=== PATIENT | male | born 1990 | race Caucasian/White ===

== ENCOUNTER 2022-09-03 17:23 | Emergency (ER) | payer MEDICAID ==
[~2022-09-03] VITALS: Ht 172.7 cm; Wt 98.0 kg
[2022-09-03] MEDS ORDERED: TETANUS, DIPHTHERIA, PERTUSSIS VAC/PF 0.5ML (>10YR OLD) IM ONE (21:30)
[2022-09-03] MEDS ORDERED: AMOX1TAB16 MT (21:42)
[2022-09-03 21:59] VITALS: BP 132/76
== END 2022-09-03 22:03 | disposition home or self-care (01) ==
LOC: ER 17:23
DX: S61.552A Open bite of left wrist, initial encounter (principal); E11.9 Type 2 diabetes mellitus without complications; W54.0XXA Bitten by dog, initial encounter; Y93.89 Activity, other specified; Y92.89 Other specified places as the place of occurrence of the external cause
CPT/HCPCS: 90471; 90715; 99283

== ENCOUNTER 2022-11-29 09:38 | Emergency (ER) | payer MEDICAID ==
[~2022-11-29] VITALS: Ht 170.2 cm; Wt 122.0 kg
[~2022-11-29 09:38] MED LIST: AMOX1TAB16 MT
[2022-11-29] MEDS ORDERED: SODIUM CHLORIDE 0.9% 1,000 ML IV ONE (10:45)
[2022-11-29 13:00] LABS: BASOPHILS % 0.7 % (0.0-2.0); EOSINOPHILS % 1.3 % (0.0-5.0); HEMATOCRIT. 44.4 % (42.0-52.0); HEMOGLOBIN. 16.3 g/dL (14.0-18.0); LYMPHOCYTES % 28.4 % (20.0-50.0); MEAN CORPUSCULAR HEMOGLOBIN 32.3 pg (28.0-32.0); MEAN PLATELET VOLUME 8.5 fl (7.4-10.4); MONOCYTES % 8.9 % (2.0-8.0); NEUTROPHILS % 60.7 % (40.0-76.0); PLATELET 326 x1000/uL (130-400); RED BLOOD CELL COUNT 5.05 mill/uL (4.7-6.1); RED CELL DISTRIBUTION WIDTH 13.9 % (11.6-14.6)
[2022-11-29 13:03] LABS: PROTHROMBIN TIME 10.4 sec (9.6-11.0)
[2022-11-29 14:00] LABS: CHLORIDE 100 mEq/L (98-107); ETHANOL BLOOD < 10 mg/dL
[2022-11-29 15:09] VITALS: BP 125/88
== END 2022-11-29 15:14 | disposition home or self-care (01) ==
LOC: ER 09:38
DX: E11.65 Type 2 diabetes mellitus with hyperglycemia (principal); R74.01 Elevation of levels of liver transaminase levels; Z79.84 Long term (current) use of oral hypoglycemic drugs
CPT/HCPCS: 36415; 80053; 80320; 82962; 83605; 83690; 85025; 85610; 99283; J7030; G0480